=== PATIENT | female | born 1945 | race Caucasian/White ===

== ENCOUNTER → 2024-05-09 10:00 | Outpatient (REF) | payer MEDICARE, SELFPAY | LOC: HWRCS 10:00 | PROVIDERS: ATTENDING PHYSICIAN Internal Medicine Cardiovascular Disease; PRIMARYCARE PHYSICIAN Nurse Practitioner Adult Health | DX: R55 Syncope and collapse (principal) | CPT/HCPCS: 93306 ==

== ENCOUNTER → 2024-11-16 09:16 | Outpatient (REF) | payer OTHER, SELFPAY | LOC: HWRCS 09:16 | PROVIDERS: ATTENDING PHYSICIAN Internal Medicine Cardiovascular Disease; FAMILY PHYSICIAN Nurse Practitioner Adult Health | DX: I34.0 Nonrheumatic mitral (valve) insufficiency (principal); I07.1 Rheumatic tricuspid insufficiency | CPT/HCPCS: 93306 ==